=== PATIENT | male | born 1995 | race Caucasian/White ===

== ENCOUNTER 2017-08-24 17:34 | Emergency (ER) | payer BC ==
[~2017-08-24] VITALS: Ht 188 cm; Wt 74.3 kg
[2017-08-24 17:45] VITALS: TEMP 37; Ht 188 cm; Wt 74.3 kg
--- NOTE | 2017-08-24 18:14 | EMERGENCY ROOM VISIT NOTE ---
History Report prepared by Adam: Kraig Block Under the Supervision of: Dr. Uri Traore M.D. First contact with patient: 18:01 Chief Complaint: CARDIAC ASSESSMENT Stated Complaint: CHEST PAIN, REFERRED BY [employer] History of Present Illness The patient is a 22 year old male who presents to the Emergency Room with complaints of intermittent left sided chest pain that began two weeks ago. He rates his pain as a 2/10 in severity. He describes the pain as a dull sensation. The patient states that he has been experiencing chest pain for a couple of minutes multiple times a day. He reports over the last two weeks his chest pain has been occurring more frequently. The patient states he has also been tachycardic with a rate of 110. He reports he usually is able to run a couple of miles and is normally active. The patient states he had to stop at a quarter of a mile the other day due to his chest pain and shortness of breath. He reports he went to [facility] today where they found sinus arrhythmia on his EKG. They sent the patient to the ER. He denies trauma, pain or swelling in his legs, blood or black stool, lightheaded, dizziness, thyroid problems, recent travel, and family history of blood clots. The patient states he has a history of an appendectomy and asthma. Source of History: patient Onset: two weeks ago Position: chest (left) Symptom Intensity: 2/10 Quality: dull Timing: intermittent Associated Symptoms: + SOB Note: Associated symptoms: tachycardia Denies: leg pain or swelling, lightheadedness, dizziness Review of Systems See HPI for pertinent positives & negatives. A total of 10 systems reviewed and were otherwise negative. Past Medical & Surgical Medical Problems: (1) Asthma Surgical Problems: (1) History of appendectomy Old medical records were reviewed. Nurse's notes were reviewed and I agree with. Family History GERD Hypertension Social History Smoking Status: Never Smoker Smokeless Tobacco Use: No Alcohol Use: occasionally Drug Use: none Marital Status: single Housing Status: lives with roommate Occupation Status: [employer] student Current/Historical Medications No Active Prescriptions or Reported Meds Allergies Coded Allergies: No Known Allergies (Unverified , 08/24/17) Physical Exam Vital Signs Date Time Temp Pulse Resp B/P (MAP) Pulse Ox O2 Delivery O2 Flow Rate FiO2 08/24/17 19:33 71 20 120/67 98 08/24/17 18:51 71 08/24/17 17:48 100 Room Air 08/24/17 17:45 37.0 18 151/86 99 Room Air Physical Exam General: Non-ill appearing young male in no acute distress. HEENT: Normal cephalic atraumatic. Pupils are equal round and reactive to light. Extraocular movements are intact. Oropharynx is pink with moist mucous membranes. No swelling of the mouth lips or tongue. Neck: Supple with a midline trachea. No meningeal signs or stiffness, no JVD or bruits. No Stridor. Chest: Clear to auscultation bilaterally. No wheezes or rhonchi. No increased work of breathing. Heart: regular rate and rhythm. Abdomen: Soft nontender, nondistended without rebound guarding or rigidity. Extremities: No cyanosis clubbing or edema. No calf tenderness or assymetry Spine/Back. Non tender to palpation. No CVA tenderness Skin: Good turgor without rashes. Neurologic exam: Cranial nerves two through 12 are intact. Motor and sensation are intact and symmetrical throughout. Medical Decision & Procedures ER Provider Diagnostic Interpretation: X-ray results as stated below per interpretation by me and the radiologist: CHEST ONE VIEW PORTABLE HISTORY: 22 years-old Male CHEST PAIN acute atypical chest pain COMPARISON: None available TECHNIQUE: Portable AP view of the chest FINDINGS: Cardiomediastinal and hilar silhouettes are within normal limits. No pneumothorax, pleural effusion, focal airspace consolidation or overt pulmonary edema. The bones of the chest appear grossly intact. IMPRESSION: No acute process. The above report was generated using voice recognition software. It may contain grammatical, syntax or spelling errors. Electronically signed by: Kishor Foley M.D. 08/24/2017 6:47 PM Dictated Date/Time: 08/24/2017 6:45 PM Laboratory Results 08/24/17 18:30 Red Blood Count 5.00, Mean Corpuscular Volume 86.4, Mean Corpuscular Hemoglobin 31.2, Mean Corpuscular Hemoglobin Concent 36.1, Mean Platelet Volume 10.8, Neutrophils (%) (Auto) 74.8, Lymphocytes (%) (Auto) 18.1, Monocytes (%) (Auto) 5.5, Eosinophils (%) (Auto) 0.9, Basophils (%) (Auto) 0.4, Neutrophils # (Auto) 5.59, Lymphocytes # (Auto) 1.35, Monocytes # (Auto) 0.41, Eosinophils # (Auto) 0.07, Basophils # (Auto) 0.03 08/24/17 18:30 Test 08/24/17 18:30 08/24/17 18:31 White Blood Count 7.47 K/uL (4.8-10.8) Red Blood Count 5.00 M/uL (4.7-6.1) Hemoglobin 15.6 g/dL (14.0-18.0) Hematocrit 43.2 % (42-52) Mean Corpuscular Volume 86.4 fL (80-100) Mean Corpuscular Hemoglobin 31.2 pg (25-34) Mean Corpuscular Hemoglobin Concent 36.1 g/dl (32-36) Platelet Count 166 K/uL (130-400) Mean Platelet Volume 10.8 fL (7.4-10.4) Neutrophils (%) (Auto) 74.8 % Lymphocytes (%) (Auto) 18.1 % Monocytes (%) (Auto) 5.5 % Eosinophils (%) (Auto) 0.9 % Basophils (%) (Auto) 0.4 % Neutrophils # (Auto) 5.59 K/uL (1.4-6.5) Lymphocytes # (Auto) 1.35 K/uL (1.2-3.4) Monocytes # (Auto) 0.41 K/uL (0.11-0.59) Eosinophils # (Auto) 0.07 K/uL (0-0.5) Basophils # (Auto) 0.03 K/uL (0-0.2) RDW Standard Deviation 38.7 fL (36.4-46.3) RDW Coefficient of Variation 12.2 % (11.5-14.5) Immature Granulocyte % (Auto) 0.3 % Immature Granulocyte # (Auto) 0.02 K/uL (0.00-0.02) D-Dimer < 190 ug/L FEU (0-500) Anion Gap 6.0 mmol/L (3-11) Est Creatinine Clear Calc Drug Dose 98.2 ml/min Estimated GFR () 94.8 Estimated GFR (Non- 81.8 BUN/Creatinine Ratio 15.5 (10-20) Calcium Level 10.1 mg/dl (8.5-10.1) Total Bilirubin 0.7 mg/dl (0.2-1) Direct Bilirubin 0.2 mg/dl (0-0.2) Aspartate Amino Transf (AST/SGOT) 16 U/L (15-37) Alanine Aminotransferase (ALT/SGPT) 24 U/L (12-78) Alkaline Phosphatase 64 U/L (45-117) Total Protein 7.9 gm/dl (6.4-8.2) Albumin 4.8 gm/dl (3.4-5.0) Lipase 172 U/L (73-393) Thyroid Stimulating Hormone (TSH) 2.610 uIu/ml (0.300-4.500) Bedside Troponin I < 0.030 ng/ml (0-0.045) Laboratory studies as stated above per my review. ECG Per My Interpretation Indication: chest pain Rate (beats per minute): 68 Rhythm: sinus with SA Findings: RBBB (incomplete), no acute ischemic change Comparison ECG Date: 08/24/17 Change: no significant change ED Course 1804: Past medical records reviewed. The patient was evaluated in room B03B, and a complete history and physical examination were performed. 1724: Upon reevaluation, the patient is resting comfortably. I discussed the results and treatment plan with the patient. He verbalized agreement of the treatment plan. The patient was discharged home. Medical Decision Differentials include, but are not limited to; acute coronary syndrome, arrhythmia, PE, pneumothorax, musculoskeletal, and thyroid problems. This patient comes in as described above. He was placed in room B3. he has been having chest pain for about 2 weeks that comes and goes his left side of his chest. today, it has been all day. He looks well on exam. EKG was obtained as well as chest x-ray and multiple blood testing. EKG does not show any acute ischemic changes. He does have some sinus arrhythmia. Chest x-ray was unremarkable and he has no congestive heart failure, pneumonia , or pneumothorax. His contour of his aorta looks normal and he has no symptoms to suggest aortic disease. He has no back pain. Troponin was negative and his d- dimer was also negative. In a low pretest pretest probability setting, this makes PE highly unlikely. He has no acute electrolyte or metabolic abnormalities. His symptoms are atypical for cardiac disease and with prolonged symptoms and a negative troponin this further makes this unlikely. This may be more musculoskeletal or GI or stress related. I encouraged him to follow-up with his regular doctor this week and return to the ER if: Recurrence of symptoms, worsening of symptoms, increasing pain, any new problems or concerns. He is happy with the plan and discharged to home. Medication Reconcilliation Current Medication List: was personally reviewed by me Blood Pressure Screening Patient's blood pressure: Elevated blood pressure Blood pressure disposition: Elevated BP felt to be situational Impression Primary Impression: Left sided chest pain Scribe Attestation The scribe's documentation has been prepared under my direction and personally reviewed by me in its entirety. I confirm that the note above accurately reflects all work, treatment, procedures, and medical decision making performed by me. Departure Information Dispostion Home / Self-Care Prescriptions No Active Prescriptions or Reported Meds Referrals [facility] Forms IMPORTANT VISIT INFORMATION Patient Instructions My [facility] Additional Instructions Rest. Return if: Increasing pain, worsening of symptoms, shortness of breath, fever or chills, any new problems or concerns Follow-up with your doctor the student [facility] the next 1-2 days for recheck if not 100% better or return here at any point if symptoms worsen
[2017-08-24 18:38] LABS: BASO % 0.4 %; BASO ABS # 0.03 K/uL (0-0.2); EOS % 0.9 %; EOS ABS # 0.07 K/uL (0-0.5); HEMATOCRIT 43.2 % (42-52); HEMOGLOBIN 15.6 g/dL (14.0-18.0); IG# 0.02 K/uL (0.00-0.02); LYMPH % 18.1 %; LYMPH ABS # 1.35 K/uL (1.2-3.4); MEAN CELL VOLUME 86.4 fL (80-100); MEAN CORPUSCULAR HEMOGLOBIN 31.2 pg (25-34); MEAN CORPUSCULAR HGB CONC 36.1 g/dl (32-36); MEAN PLATELET VOLUME 10.8 fL (7.4-10.4); MONO % 5.5 %; MONO ABS # 0.41 K/uL (0.11-0.59); NEUT % 74.8 %; NEUT ABS # 5.59 K/uL (1.4-6.5); PLATELET COUNT 166 K/uL (130-400); RED CELL DISTRIBUTION WIDTH CV 12.2 % (11.5-14.5); RED CELL DISTRIBUTION WIDTH SD 38.7 fL (36.4-46.3); WHITE BLOOD COUNT 7.47 K/uL (4.8-10.8)
--- NOTE | 2017-08-24 18:48 | DIAGNOSTIC IMAGING REPORT ---
CHEST ONE VIEW PORTABLE HISTORY: 22 years-old Male CHEST PAIN acute atypical chest pain COMPARISON: None available TECHNIQUE: Portable AP view of the chest FINDINGS: Cardiomediastinal and hilar silhouettes are within normal limits. No pneumothorax, pleural effusion, focal airspace consolidation or overt pulmonary edema. The bones of the chest appear grossly intact. IMPRESSION: No acute process. The above report was generated using voice recognition software. It may contain grammatical, syntax or spelling errors. Electronically signed by: Kishor Foley M.D. 08/24/2017 6:47 PM Dictated Date/Time: 08/24/2017 6:45 PM
[2017-08-24 19:02] LABS: ALBUMIN 4.8 gm/dl (3.4-5.0); CALCIUM 10.1 mg/dl (8.5-10.1); CREATININE 1.25 mg/dl (0.60-1.40); POTASSIUM 3.7 mmol/L (3.5-5.1); TOTAL PROTEIN 7.9 gm/dl (6.4-8.2)
[2017-08-24 19:33] VITALS: BP 120/67; PULSE 71; O2SAT 98
== END 2017-08-24 19:34 | disposition home or self-care (01) ==
LOC: C.EDB 17:35
DX: R07.9 Chest pain, unspecified (principal); J45.909 Unspecified asthma, uncomplicated